=== PATIENT | female | born 1990 | race Caucasian/White ===

== ENCOUNTER 2022-01-26 14:35 | Outpatient (CLI) | payer BC, SELFPAY ==
[2022-01-26 23:10] LABS: Chlamydia DNA Amplified* NOT DETECTED (No Detected); GC DNA Amplified* NOT DETECTED (No Detected)
== END 2022-01-26 14:36 | disposition home or self-care (01) ==
PROVIDERS: PCP Nurse Practitioner Family; Visit Provider Nurse Practitioner Family
DX: Z01.419 Encounter for gynecological examination (general) (routine) without abnormal findings; R00.2 Palpitations; Z11.3 Encounter for screening for infections with a predominantly sexual mode of transmission
CPT/HCPCS: 36415; 84443; 87491; 87591; 87624; 88175

== ENCOUNTER 2023-04-19 06:53 | Outpatient (CLI) | payer BC, SELFPAY ==
--- OUTSIDE RECORDS SUMMARY | 2023-04-19 06:55 | XMS_ITS | Clinical Summary ---
Author Name Unknown Organization [facility] Address [address] [place] [address] Care Team Providers Care Mud Analysis Supervisor Name Role Phone Elsewhere, Pcp Primary Care Provider Unavailabl e Source Comments Patient records contain information from all sites at [facility]. For routine questions regarding patient records, call [phone] during business hours, M-F 8:00 AM - 5:00 PM Central Time. Record requests for emergency care only can be directed to [phone] at any time.[facility] Allergies Active Allergy Reactions Criticality Noted Date Comments Nickel Other (see comments) 10/24/2017 Penicillin Other (see comments) 07/06/2010 Medications Medication Sig Dispensed Refills Start Date End Date Status ascorbic acid-bioflavonoids 1,000-100 mg tablet extended release as needed. 0 08/26/2011 Active etonogestrel (for_NEXPLANON) 68 mg subdermal implant 1 each by subdermal route once. 0 Active levonorgestrel-ethiny l estradiol (SEASONALE) 0.15-mg-30 mcg per tablet Take 1 tablet by mouth daily. 0 Active omega 4-goh-ggw-fish oil 900 mg-360 mg- 455 mg-1,000 mg capsule Take 1,200 mg by mouth. 0 Active TURMERIC ORAL Take by mouth daily. 0 Active ondansetron ODT (ZOFRAN-ODT) 4 mg disintegrating tablet Take 1 tablet (4 mg total) by mouth every 12 (twelve) hours. 10 tablet 0 06/28/2021 Active Additional Information Patient not taking.Reported on 09/24/2021 youza-3-fud-epa-dpa-f kaci oil 1,050-1,200 mg capsule Take 1,200 mg by mouth. 0 Active turmeric root extract 500 mg capsule Take by mouth daily. 0 Active cholecalciferol, vitamin D3, 25 mcg (1,000 Unit) tablet Take 1,000 Units by mouth. 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 Bleeding Rectal (Primary Dx) Discharge Disposition: Home or Self Care 04/09/2023 Nurse Triage Department of Family Medicine in [address] [phone] Tash Vigil, RlEizabethN. Rectal Bleeding from Last 3 Months Immunizations Name Administration Dates Next Due 4vHPV (discontinued) 02/06/2014,08/28/2013,06/07 DTaP-IPV/Hib (Pentacel) 08/06/2014 HepB Pediatric/Adolescent 11/03/2005,01/10/2003, 11/02/2002 MMR 11/02/2002 Td (Adult), adsorbed 11/02/2002 Family History Medical History Relation Name Comments Dementia Maternal Grandfather Timmy Shelton n/a Depression Maternal Grandfather Timmy Shelton pil ls Cancer Maternal Grandmother Diabetes Maternal Grandmother Thyroid disease Mother Susan Deshpande pills Depression Paternal Grandfather Pablito Deshpande Diabetes Paternal Grandfather Pablito Deshpande manged by pills Heart disease Paternal Grandfather Pablito Gerardo guerin Relation Name Status Comments Maternal Grandfather Timmy Shelton Maternal Grandmother Mother Susan Deshpande Paternal Grandfather Pablito Gerardo Deshpande Social History Tobacco Use Types Packs/Day Years Used Date Smoking Tobacco: Former Cigarettes 0.5 6 S tarted: 11/12/2008 Smokeless Tobacco: Current Chew Tobacco Cessation:Counseling Given: Yes Alcohol Use Standard Drinks/Week Comments Yes 4 (1 standard drink = 0.6 oz pur e alcohol) Social Connection and Isolation Panel [NHANES] A nswer Date Recorded Frequency of Communication with Friends and Fami ly Twice a week 03/27/2019 Frequency of Social Gatherings with Friends and Family Once a week 03/27/2019 Attends Muslim Services Never 03/27 Active Member of Clubs or Organizations Yes 03/27/2019 Attends Club or Organization Meetings Never 03/27/2019 Marital Status Never 03/27/2019 AUDIT-C Answer Date Recorded Frequency of Alcohol Consumption 2-3 times a wee k 03/27/2019 Average Number of Drinks 3 or 4 019 Frequency of Binge Drinking Less than monthly Overall Financial Resource Strain (CARDIA) Answe r Date Recorded Difficulty of Paying Living Expenses Not hard at all 03/27/2019 [facility] - Occupational Stress Questionnaire Answer Date Recorded Feeling of Stress To some extent 03/27/2019 Exercise Vital Sign Answer Date Recorde d Days of Exercise per Week 6 days 2018 Minutes of Exercise per Session 140 min 03/27/2019 Hunger Vital Sign Answer Date Recorded Worried About Running Out of Food in the Last Ye ar Never true 03/27/2019 Ran Out of Food in the Last Year Never true 03/27/2019 PRAPARE - Transportation Answer Date Re corded Lack of Transportation (Medical) No 03/27/2019 Lack of Transportation (Non-Medical) No 03/27/2019 Nutrition Answer Date Recorded Nutrition: EVOO Fat Source Unknown 05/29 Nutrition: Servings of Fruits/Vegetables per Day Not on file 05/29/2020 Dental Answer Date Recorded Dental: Regular Dentist Unknown 05/30/19 21 Education Answer Date Recorded What is the highest level of school you have completed or the highest degree you have received? GED or equivalent Sex and Gender Information Value Date Recorded Sex Assigned at Not on file Gender Identity Not on file Sexual Orientation Not on file Last Filed Vital Signs Vital Sign Reading Time Taken Comments Blood Pressure 116/83 04/09/2023 1:45 PM CUSTOMER OPERATIONS SPECIALIST Pulse 88 04/09/2023 1:49 PM CUSTOMER OPERATIONS SPECIALIST Temperature 36.6 ??C (97.9 ??F) 04/09/2023 4:16 PM CS T Respiratory Rate 13 04/09/2023 1:51 PM CUSTOMER OPERATIONS SPECIALIST Oxygen Saturation 98% 04/09/2023 1:49 PM CUSTOMER OPERATIONS SPECIALIST Inhaled Oxygen Concentration - - Weight 72 kg (158 lb 11.7 oz) 04/09/2023 1:51 PM CUSTOMER OPERATIONS SPECIALIST Height 181.4 cm (5' 11.42) 03/27/2019 9:02 AM C Body Mass Index 21.88 03/27/2019 9:02 AM CUSTOMER OPERATIONS SPECIALIST Plan of Treatment Health Maintenance Due Date Last Done Comments HIV Screening 1990 Hepatitis C Screening 1990 COVID-19 Vaccine (#1) 1990 Tobacco Cessation counseling 07/04/2018 07/04/2017 Influenza Vaccine (#1) 2022 Depression Screening (Annual PHQ-2) 03/28/2023 DTaP,Tdap,and Td Vaccines (7 - Tdap) 08/06/2024 08/06/2014, 08/06/2014, 08/06/2014, Additional history exists Cervical Cancer Screening 01/26/20252021, 05/31/2019, 07/04/2017, Additional history exists Hepatitis B Vaccines Completed 11/03/2005, 06/26/2003, 01/10/2003, Additional history exists HPV Vaccines Completed 02/06/2014, 01/26, 08/28/2013, Additional history exists Pneumococcal vaccine (0-64 years) Aged Out No longer eligible based on patient's age to complete this topic Medical Devices Implanted Type Area Diplomatic Officer Device Identifier Shelf Expiration Date Model / Serial / Lot Nexplanon-04/24 Implanted:03/29 (Quantity not on file) Misc Other Arm Nexplanon-04/24 Implanted:03/29 (Quantity not on file) Other/Legacy - See Implant Description Arm Procedures Procedure Name Priority Date/Time Associated Diagnosis Comments CT ABDOMEN PELVIS WITHOUT AND WITH IV CONTRAST RAD - Semiurgent (Fast; most ED patients; some inpatients) 04/09/2023 2:58 PM CUSTOMER OPERATIONS SPECIALIST CBC WITH DIFFERENTIAL, B STAT 04/09/2023 2:18 PM CUSTOMER OPERATIONS SPECIALIST COMPREHENSIVE METABOLIC PANEL, S/P STAT 04/09/2023 2:18 PM CUSTOMER OPERATIONS SPECIALIST TEST, POCT, U (LAB) STAT 04/09/2023 2:13 PM CUSTOMER OPERATIONS SPECIALIST HEMOCCULT Routine 04/09/2023 2:13 PM CUSTOMER OPERATIONS SPECIALIST from Last 3 Months Results * CT Abdomen Pelvis without and with IV Contrast (04/09/2023 2:58 PM CUSTOMER OPERATIONS SPECIALIST) Anatomical Region Laterality Modality Abdomen, Pelvis, Abdominal R ST LOS, Abdominal ARZ LOS, Abdominal FLA LOS N/A Computed Tomography 04/09/2023 3:01 PM CUSTOMER OPERATIONS SPECIALIST Impressions 04/09/2023 4:04 PM CUSTOMER OPERATIONS SPECIALIST No acute findings. Specifically, no evidence of a source of apparent GI bleeding. Narrative 04/09/2023 4:04 PM CUSTOMER OPERATIONS SPECIALIST EXAM: CT ABDOMEN PELVIS WITHOUT AND WITH IV CONTRAST COMPARISON: 10/09/2021 FINDINGS: Lung bases: Mild bibasilar atelectasis. Liver: No focal lesion identified. Normal enhancement. Gallbladder and Biliary Tree: No evidence of cholelithiasis. No biliary dilatation. Spleen: No focal lesion is identified. No evidence of splenomegaly. Pancreas: Normal enhancement. No focal lesion or ductal dilatation. Adrenal glands: No focal lesion identified. Kidneys, ureters, and bladder: Normal enhancement. No evidence of hydronephrosis or hydroureter. No suspicious mass lesion. No renal or ureteral calculi. GI tract: No evidence of bowel obstruction. No evidence of mucosal lesion. No contrast pooling within bowel to suggest a source of the patient's apparent GI bleeding. Soft tissues: No retroperitoneal or pelvic lymphadenopathy. Small amount of free fluid within the cul-de-sac which may be physiologic in nature. Small fat- containing umbilical hernia, unchanged. Reproductive: Unremarkable. Bones: Unremarkable for age. Procedure Note Mario Lovelace M.D. - 04/09/2023 EXAM: CT ABDOMEN PELVIS WITHOUT AND WITH IV CONTRAST COMPARISON: 10/09/2021 FINDINGS: Lung bases: Mild bibasilar atelectasis. Liver: No focal lesion identified. Normal enhancement. Gallbladder and Biliary Tree: No evidence of cholelithiasis. No biliarydilatation. Spleen: No focal lesion is identified. No evidence of splenomegaly. Pancreas: Normal enhancement. No focal lesion or ductal dilatation. Adrenal glands: No focal lesion identified. Kidneys, ureters, and bladder: Normal enhancement. No evidence ofhydronephrosis or hydroureter. No suspicious mass lesion. No renal orureteral calculi. GI tract: No evidence of bowel obstruction. No evidence of mucosal lesion.No contrast pooling within bowel to suggest a source of the patient'sapparent GI bleeding. Soft tissues: No retroperitoneal or pelvic lymphadenopathy. Small amountof free fluid within the cul-de-sac which may be physiologic in nature.Small fat-containing umbilical hernia, unchanged. Reproductive: Unremarkable. Bones: Unremarkable for age. IMPRESSION: No acute findings. Specifically, no evidence of a source of apparent GIbleeding. Daniel Johnson APRN, C.N.P., M.S.N. IMG CT P ROCEDURES * CBC with Differential, Blood (04/09/2023 2:18 PM CUSTOMER OPERATIONS SPECIALIST) Pathologist [facility] Hemoglobin 12.6 11.6 - 15.0 g/dL 04/09/2023 2:26 PM CUSTOMER OPERATIONS SPECIALIST CNFL Hematocrit 37.2 35.5 - 44.9 % 04/09/2023 2:26 PM CUSTOMER OPERATIONS SPECIALIST CNFL Erythrocytes 4.24 3.92 - 5.13 x10(12)/L 04/09/2023 2:26 PM CUSTOMER OPERATIONS SPECIALIST CNFL MCV 87.7 78.2 - 97.9 fL 04/09/2023 2:26 PM CUSTOMER OPERATIONS SPECIALIST CNFL RBC Distrib Width 13.0 12.2 - 16.1 % 04/09/2023 2:26 PM CUSTOMER OPERATIONS SPECIALIST CNFL Platelet Count 344 157 - 371 x10(9)/L 04/09/2023 2:26 PM CUSTOMER OPERATIONS SPECIALIST CNFL Leukocytes 6.7 3.4 - 9.6 x10(9)/L 04/09/2023 2:26 PM CUSTOMER OPERATIONS SPECIALIST CNFL Neutrophils 3.63 1.56 - 6.45 x10(9)/L 04/09/2023 2:26 PM CUSTOMER OPERATIONS SPECIALIST CNFL Lymphocytes 2.16 0.95 - 3.07 x10(9)/L 04/09/2023 2:26 PM CUSTOMER OPERATIONS SPECIALIST CNFL Monocytes 0.78 0.26 - 0.81 x10(9)/L 04/09/2023 2:26 PM CUSTOMER OPERATIONS SPECIALIST CNFL Eosinophils 0.11 0.03 - 0.48 x10(9)/L 04/09/2023 2:26 PM CUSTOMER OPERATIONS SPECIALIST CNFL Basophils <0.04 0.01 - 0.08 x10(9)/L 04/09/2023 2:26 PM CUSTOMER OPERATIONS SPECIALIST CNFL Blood (Blood, Venous) 04/09/2023 2:18 PM CUSTOMER OPERATIONS SPECIALIST 04/09/2023 2:20 PM CUSTOMER OPERATIONS SPECIALIST Marce Cross APRNNEilzabethP., M.S.N. LAB BLOO D ADD-ON [facility] [address] [place] [address], [facility] CNFL [facility] [place] [address] * (ABNORMAL) Comprehensive Metabolic Panel (04/09/2023 2:18 PM CUSTOMER OPERATIONS SPECIALIST) Potassium, P 3.7 3.6 - 5.2 mmol/L 04/09/2023 2:38 PM CUSTOMER OPERATIONS SPECIALIST CNFL Sodium, P 137 135 - 145 mmol/L 04/09/2023 2:38 PM CUSTOMER OPERATIONS SPECIALIST CNFL Chloride, P 104 98 - 107 mmol/L 04/09/2023 2:38 PM CUSTOMER OPERATIONS SPECIALIST CNFL Bicarbonate, P 27 22 - 29 mmol/L 04/09/2023 2:38 PM CUSTOMER OPERATIONS SPECIALIST CNFL Anion Gap, P 6(L) 7 - 15 04/09/2023 2:38 PM CUSTOMER OPERATIONS SPECIALIST CNFL BUN (Blood Urea Nitrogen), P 12 6 - 21 mg/dL 04/09/2023 2:38 PM CUSTOMER OPERATIONS SPECIALIST CNFL Creatinine 0.85 0.59 - 1.04 mg/dL 04/09/2023 2:38 PM CUSTOMER OPERATIONS SPECIALIST CNFL Estimated GFR (eGFR) >90 >=60 mL/min/BS A 04/09/2023 2:38 PM CUSTOMER OPERATIONS SPECIALIST CNFL Comment: Estimated GFR calculated using the 2020 CKD_EPI creatinine equation. Calcium, Total, P 9.3 8.6 - 10.0 mg/dL 04/09/2023 2:38 PM CUSTOMER OPERATIONS SPECIALIST CNFL Glucose, P 104 70 - 140 mg/dL 04/09/2023 2:38 PM CUSTOMER OPERATIONS SPECIALIST CNFL Protein, Total, P 6.9 6.3 - 7.9 g/dL 04/09/2023 2:38 PM CUSTOMER OPERATIONS SPECIALIST CNFL Albumin, P 4.3 3.5 - 5.0 g/dL 04/09/2023 2:38 PM CUSTOMER OPERATIONS SPECIALIST CNFL Aspartate Aminotransferase (AST), P 16 8 - 43 U/L 04/09/2023 2:38 PM CUSTOMER OPERATIONS SPECIALIST CNFL Alkaline Phosphatase, P 63 35 - 104 U/L 04/09/2023 2:38 PM CUSTOMER OPERATIONS SPECIALIST CNFL Alanine Aminotransferase (ALT), P 18 7 - 45 U/L 04/09/2023 2:38 PM CUSTOMER OPERATIONS SPECIALIST CNFL Bilirubin, Total, P 0.5 0.0 - 1.2 mg/dL 04/09/2023 2:38 PM CUSTOMER OPERATIONS SPECIALIST CNFL Blood (Blood, Venous) 04/09/2023 2:18 PM CUSTOMER OPERATIONS SPECIALIST 04/09/2023 2:20 PM CUSTOMER OPERATIONS SPECIALIST Adrianne Cross APRN.N.Supriya., M.S.N. LAB BLOO D ADD-ON Performing Organization Address [facility]/[place] [address], [place] [address] * (ABNORMAL) Hemoccult, Feces (04/09/2023 2:13 PM CUSTOMER OPERATIONS SPECIALIST) Hemoccult Positive(A) Negative 04/09/2023 2:28 PM CUSTOMER OPERATIONS SPECIALIST CNFL Stool (Stool) 04/09/2023 2:1 3 PM CUSTOMER OPERATIONS SPECIALIST 04/09/2023 2:24 PM CUSTOMER OPERATIONS SPECIALIST Adrianne Cross APRN.N.P., M.S.N. LAB BODY FLUIDS AND STOOLS ORDERABLES Performing Organization Address [facility] [place] [address], [address] [place] [address] * Test, POCT, Urine (Lab) (04/09/2023 2:13 PM CUSTOMER OPERATIONS SPECIALIST) Test, POCT, U Negative 04/09/2023 2:32 PM CUSTOMER OPERATIONS SPECIALIST CNFL Urine (Urine, Midstream) 04/09/2023 2:13 PM CUSTOMER OPERATIONS SPECIALIST 04/09/2023 2:24 PM CUSTOMER OPERATIONS SPECIALIST Daniel Johnson APRN, C.N.P., M.S.N. LAB POCT ORDERABLES - DEVICE [facility] [address] [place] [id number], [facility] in [address] [address] from Last 3 Months Care Teams Mud Analysis Supervisor Relationship Specialty Start Date End Date Elsewhere, Pcp PCP - General Family Medicine 06/28/21
--- OUTSIDE RECORDS SUMMARY | 2023-04-19 06:56 | XMS_ITS | Encounter Summary ---
Author Name Unknown Organization [facility] Address [address] [place] [address] Care Team Providers Care State Patrol Officer Name Role Phone Elsewhere, Pcp Primary Care Provider Unavailabl e Reason for Referral * Outpatient (Routine) - Closed Specialty Diagnoses / Procedures Referred By Alex garcía Referred To Contact Rheumatology Diagnoses Metabolizer CYP2D6 Ultra Rapid Anabela Castaneda, C.N.P. [address] [place] [address] [facility] Referral ID Status Reason Start Date Expiration Date Visits Re quested Visits Authorized [id number] Closed 08/15/2018 08/15/2019 1 1 Encounter Details Date Type Department Care Team (Late st Contact Info) Description 08/15/2018 [facility] [address] [place] [phone] Anabela Castaneda, C.N.P. [address] [place] [address] Metabolizer CYP2D6 Ultra Rapid (Primary Dx) Social History Tobacco Use Types Packs/Day Years Used Date Smoking Tobacco: Every Day Cigarettes 0.5 Smokeless Tobacco: Never Alcohol Use Standard Drinks/Week Comments Yes 0 (1 standard drink = 0.6 oz pur e alcohol) Sex and Gender Information Value Date Recorded Sex Assigned at Not on file Gender Identity Not on file Sexual Orientation Not on file documented as of this encounter Plan of Treatment Scheduled Referrals Name Type Priority Associated Diagnoses Order Schedule Rheumatology Referral Outpatient Referral Routine Metabolizer CYP2D6 Ultra Rapid Expected: 08/15/2018 (Approximate), Expires: 08/15/2021 documented as of this encounter Visit Diagnoses Diagnosis Metabolizer CYP2D6 Ultra Rapid- Primary documented in this encounter Additional Health Concerns Infection Onset Date Last Indicated Resolved Time COVID19 Pending 07/24/2020 07/24/2020 07/24/2020 8 :25 PM CDT documented as of this encounter Care Teams State Patrol Officer Relationship Specialty Start Date End Date Elsewhere, Pcp PCP - General Family Medicine 06/28/21 documented as of this encounter
--- OUTSIDE RECORDS SUMMARY | 2023-04-19 06:56 | XMS_ITS | Referral Summary ---
Author Name Unknown Organization [facility] Address [address] [place] [address] Care Team Providers Care Alteration Tailor Apprentice Name Role Phone Elsewhere, Pcp Primary Care Provider Unavailabl e Source Comments Patient records contain information from all sites at [facility]. For routine questions regarding patient records, call [phone] during business hours, M-F 8:00 AM - 5:00 PM Central Time. Record requests for emergency care only can be directed to [phone] at any time.[facility] Encounters Date Type Department Care Team Description 04/09/2023 1:45 PM CUSTODIAL SERVICES MANAGER - 04/09/2023 4:30 PM CUSTODIAL SERVICES MANAGER Emergency [facility] [address] [place] [phone] Daniel Johnson N, BASSAM, C.N.P., M.S.N. Bleeding Rectal (Primary Dx) Discharge Disposition: Home or Self Care 04/09/2023 Nurse Triage Department of Family Medicine in [address] [phone] Tash Vigil, R.N. Rectal Bleeding from Last 3 Months Allergies Active Allergy Reactions Criticality Noted Date [...] tablet by mouth daily. 0 Active omega 0-bwk-agm-fish oil 900 mg-360 mg- 455 mg-1,000 mg capsule Take 1,200 mg by mouth. 0 Active TURMERIC ORAL Take by mouth daily. 0 Active ondansetron ODT (ZOFRAN-ODT) 4 mg disintegrating tablet Take 1 tablet (4 mg total) by mouth every 12 (twelve) hours. 10 tablet 0 06/28/2021 Active Additional Information Patient not taking.Reported on 09/24/2021 fqvze-3-odk-epa-dpa-f kaci oil 1,050-1,200 mg capsule Take 1,200 [...] to surgeries born hip dysplasia unknown date Immunizations Name Administration Dates Next Due 4vHPV (discontinued) 02/06/2014,08/28/2013,06/07 DTaP-IPV/Hib (Pentacel) 08/06/2014 HepB Pediatric/Adolescent 11/03/2005,01/10/2003, 11/02/2002 MMR 11/02/2002 Td (Adult), adsorbed 11/02/2002 Social History Tobacco Use Types Packs/Day Years [...] and Family Once a week 03/27/2019 Attends Restorationism Services Never 03/27 Active Member of Clubs [...] Living Expenses Not hard at all 03/27/2019 [facility] Occupat ional Health - Occupational Stress [...] Comments Blood Pressure 116/83 04/09/2023 1:45 PM CUSTODIAL SERVICES MANAGER Pulse 88 04/09/2023 1:49 PM CUSTODIAL SERVICES MANAGER Temperature 36.6 ??C (97.9 ??F) 04/09/2023 4:16 PM CS T Respiratory Rate 13 04/09/2023 1:51 PM CUSTODIAL SERVICES MANAGER Oxygen Saturation 98% 04/09/2023 1:49 PM CUSTODIAL SERVICES MANAGER Inhaled Oxygen Concentration - - Weight 72 kg (158 lb 11.7 oz) 04/09/2023 1:51 PM CUSTODIAL SERVICES MANAGER Height 181.4 cm (5' 11.42) 03/27/2019 9:[address] Body Mass Index 21.88 03/27/2019 9:02 AM CUSTODIAL SERVICES MANAGER Plan of Treatment Not on file Medical Devices Implanted Type Area Franchise Broker Device Identifier Shelf Expiration Date Model / Serial / Lot Nexplanon-04/24 Implanted:03/29 (Quantity not on file) Misc Other Arm Nexplanon-04/24 Implanted:03/29 (Quantity not on file) Other/Legacy - See Implant Description Arm Procedures Procedure Name Priority Date/Time Associated Diagnosis Comments CT ABDOMEN PELVIS WITHOUT AND WITH IV CONTRAST RAD - Semiurgent (Fast; most ED patients; some inpatients) 04/09/2023 2:58 PM CUSTODIAL SERVICES MANAGER CBC WITH DIFFERENTIAL, B STAT 04/09/2023 2:18 PM CUSTODIAL SERVICES MANAGER COMPREHENSIVE METABOLIC PANEL, S/P STAT 04/09/2023 2:18 PM CUSTODIAL SERVICES MANAGER TEST, POCT, U (LAB) STAT 04/09/2023 2:13 PM CUSTODIAL SERVICES MANAGER HEMOCCULT Routine 04/09/2023 2:13 PM CUSTODIAL SERVICES MANAGER from Last 3 Months Results * CT Abdomen Pelvis without and with IV Contrast (04/09/2023 2:58 PM CUSTODIAL SERVICES MANAGER) Anatomical Region Laterality Modality Abdomen, Pelvis, Abdominal R ST LOS, Abdominal ARZ LOS, Abdominal FLA LOS N/A Computed Tomography 04/09/2023 3:01 PM CUSTODIAL SERVICES MANAGER Impressions 04/09/2023 4:04 PM CUSTODIAL SERVICES MANAGER No acute findings. Specifically, no evidence of a source of apparent GI bleeding. Narrative 04/09/2023 4:04 PM CUSTODIAL SERVICES MANAGER EXAM: CT ABDOMEN PELVIS WITHOUT AND WITH [...] CBC with Differential, Blood (04/09/2023 2:18 PM CUSTODIAL SERVICES MANAGER) Hemoglobin 12.6 11.6 - 15.0 g/dL 04/09/2023 2:26 PM CUSTODIAL SERVICES MANAGER CNFL Hematocrit 37.2 35.5 - 44.9 % 04/09/2023 2:26 PM CUSTODIAL SERVICES MANAGER CNFL Erythrocytes 4.24 3.92 - 5.13 x10(12)/L 04/09/2023 2:26 PM CUSTODIAL SERVICES MANAGER CNFL MCV 87.7 78.2 - 97.9 fL 04/09/2023 2:26 PM CUSTODIAL SERVICES MANAGER CNFL RBC Distrib Width 13.0 12.2 - 16.1 % 04/09/2023 2:26 PM CUSTODIAL SERVICES MANAGER CNFL Platelet Count 344 157 - 371 x10(9)/L 04/09/2023 2:26 PM CUSTODIAL SERVICES MANAGER CNFL Leukocytes 6.7 3.4 - 9.6 x10(9)/L 04/09/2023 2:26 PM CUSTODIAL SERVICES MANAGER CNFL Neutrophils 3.63 1.56 - 6.45 x10(9)/L 04/09/2023 2:26 PM CUSTODIAL SERVICES MANAGER CNFL Lymphocytes 2.16 0.95 - 3.07 x10(9)/L 04/09/2023 2:26 PM CUSTODIAL SERVICES MANAGER CNFL Monocytes 0.78 0.26 - 0.81 x10(9)/L 04/09/2023 2:26 PM CUSTODIAL SERVICES MANAGER CNFL Eosinophils 0.11 0.03 - 0.48 x10(9)/L 04/09/2023 2:26 PM CUSTODIAL SERVICES MANAGER CNFL Basophils <0.04 0.01 - 0.08 x10(9)/L 04/09/2023 2:26 PM CUSTODIAL SERVICES MANAGER CNFL Blood (Blood, Venous) 04/09/2023 2:18 PM CUSTODIAL SERVICES MANAGER 04/09/2023 2:20 PM CUSTODIAL SERVICES MANAGER Daniel Johnson APRN C.N.P., M.S.N. LAB BLOO D ADD-ON Performing Organization Address [facility]/State/ZIP Co de Phone Number [facility] [address] [place] [address], [facility] [place] [address] * (ABNORMAL) Comprehensive Metabolic Panel (04/09/2023 2:18 PM CUSTODIAL SERVICES MANAGER) Potassium, P 3.7 3.6 - 5.2 mmol/L 04/09/2023 2:38 PM CUSTODIAL SERVICES MANAGER CNFL Sodium, P 137 135 - 145 mmol/L 04/09/2023 2:38 PM CUSTODIAL SERVICES MANAGER CNFL Chloride, P 104 98 - 107 mmol/L 04/09/2023 2:38 PM CUSTODIAL SERVICES MANAGER CNFL Bicarbonate, P 27 22 - 29 mmol/L 04/09/2023 2:38 PM CUSTODIAL SERVICES MANAGER CNFL Anion Gap, P 6(L) 7 - 15 04/09/2023 2:38 PM CUSTODIAL SERVICES MANAGER CN[facility] BUN (Blood Urea Nitrogen), P 12 6 - 21 mg/dL 04/09/2023 2:38 PM CUSTODIAL SERVICES MANAGER CNFL Creatinine 0.85 0.59 - 1.04 mg/dL 04/09/2023 2:38 PM CUSTODIAL SERVICES MANAGER CNFL Estimated GFR (eGFR) >90 >=60 mL/min/BS A 04/09/2023 2:38 PM CUSTODIAL SERVICES MANAGER CNFL Comment: Estimated GFR calculated using the 2020 CKD_EPI creatinine equation. Calcium, Total, P 9.3 8.6 - 10.0 mg/dL 04/09/2023 2:38 PM CUSTODIAL SERVICES MANAGER CNFL Glucose, P 104 70 - 140 mg/dL 04/09/2023 2:38 PM CUSTODIAL SERVICES MANAGER CNFL Protein, Total, P 6.9 6.3 - 7.9 g/dL 04/09/2023 2:38 PM CUSTODIAL SERVICES MANAGER CNFL Albumin, P 4.3 3.5 - 5.0 g/dL 04/09/2023 2:38 PM CUSTODIAL SERVICES MANAGER CNFL Aspartate Aminotransferase (AST), P 16 8 - 43 U/L 04/09/2023 2:38 PM CUSTODIAL SERVICES MANAGER CNFL Alkaline Phosphatase, P 63 35 - 104 U/L 04/09/2023 2:38 PM CUSTODIAL SERVICES MANAGER CNFL Alanine Aminotransferase (ALT), P 18 7 - 45 U/L 04/09/2023 2:38 PM CUSTODIAL SERVICES MANAGER CNFL Bilirubin, Total, P 0.5 0.0 - 1.2 mg/dL 04/09/2023 2:38 PM CUSTODIAL SERVICES MANAGER CNFL Blood (Blood, Venous) 04/09/2023 2:18 PM CUSTODIAL SERVICES MANAGER 04/09/2023 2:20 PM CUSTODIAL SERVICES MANAGER Daniel Johnson APRN, C.N.P., M.S.N. LAB BLOO D ADD-ON [facility] [address] [place] [id number], [facility] CNFL [facility] in [address] [address] * (ABNORMAL) Hemoccult, Feces (04/09/2023 2:13 PM CUSTODIAL SERVICES MANAGER) Hemoccult Positive(A) Negative 04/09/2023 2:28 PM CUSTODIAL SERVICES MANAGER CNFL Stool (Stool) 04/09/2023 2:1 3 PM CUSTODIAL SERVICES MANAGER 04/09/2023 2:24 PM CUSTODIAL SERVICES MANAGER Daniel Johnson APRN, C.N.P., M.S.N. LAB BODY FLUIDS AND STOOLS ORDERABLES [facility] [address] [place] [address], [place] [facility] in [address] [address] * Test, POCT, Urine (Lab) (04/09/2023 2:13 PM CUSTODIAL SERVICES MANAGER) Test, POCT, U Negative 04/09/2023 2:32 PM CUSTODIAL SERVICES MANAGER CNFL Urine (Urine, Midstream) 04/09/2023 2:13 PM CUSTODIAL SERVICES MANAGER 04/09/2023 2:24 PM CUSTODIAL SERVICES MANAGER Daniel Johnson APRN, C.N.P., M.S.N. LAB POCT ORDERABLES - DEVICE Performing Organization Address City/[facility] Co de Phone Number [address] [address], [place] [address] [address] from Last 3 Months Care Teams Alteration Tailor Apprentice Relationship Specialty Start Date End Date Elsewhere, Pcp PCP - General Family Medicine 06/28/21
--- OUTSIDE RECORDS SUMMARY | 2023-04-19 06:56 | XMS_ITS | Encounter Summary ---
Author Name Unknown Organization [facility] Address [address] [place] [id number] Care Team Providers Care Leaded Glass Installer Name Role Phone Elsewhere, Pcp Primary Care Provider Unavailabl e Reason for Visit * Reason Onset Date Comments Rectal Bleeding 04/09/2023 Encounter Details Date Type Department Care Team ([facility] st Contact Info) Description 04/09/2023 Nurse Triage Department of Family Medicine in [place], [place] [address] [place] [phone] Tash Vigil, RElizabethN. [address] [place] [phone] Rectal Bleeding Social History Tobacco Use Types Packs/Day Years Used Date Smoking Tobacco: Former Cigarettes 0.5 6 S tarted: 11/12/2008 Smokeless Tobacco: Current Chew Alcohol Use Standard Drinks/Week Comments Yes 4 (1 standard drink = 0.6 oz pur e alcohol) Social Connection and Isolation Panel [NHANES] A nswer Date Recorded Frequency of Communication with Friends and Fami ly Twice a week 03/27/2019 Frequency of Social Gatherings with Friends and Family Once a week 03/27/2019 Attends Spiritism Services Never 03/27 Active Member of Clubs [...] Living Expenses Not hard at all 03/27/2019 [facility] of Occupat ional Health - Occupational Stress [...] on file documented as of this encounter Miscellaneous Notes * Telephone Encounter - Tash Vigil R.N. - 04/09/2023 1:19 PM CST Chief Complaint / Reason for Call Patient is a 33 y.o. female calling regarding Rectal Bleeding. Assessment Concern: Patient reports rectal bleeding since yesterday afternoon with three episodes that have turned the toilet water red. Rectal pain is present with bowel movements. Calling to request: Advice The recommended disposition is Go to ED Now. Reason for Disposition [1] MODERATE rectal bleeding (small blood clots, passing blood without stool, or toilet water turnsred) AND [2] more than once a day Protocols used: Rectal Darujibl-ABXHI-MQ Care Advice Patient/Caregiver understands and will follow care advice?: Yes, able to teach back GO TO ED NOW: * You need to be seen in the Emergency Department. O STRINGER documented in this encounter Plan of Treatment Not on file documented as of this encounter Visit Diagnoses Not on filedocumented in this encounter Care Teams Leaded Glass Installer Relationship Specialty Start Date End Date Elsewhere, Pcp PCP - General Family Medicine 06/28/21 documented as of this encounter
--- OUTSIDE RECORDS SUMMARY | 2023-04-19 06:56 | XMS_ITS | Encounter Summary ---
Author Name Unknown Organization [facility] Address [address] [place] [address] Care Team Providers Care Commercial Green Retrofit Architect Name Role Phone Elsewhere, Pcp Primary Care Provider Unavailabl e Reason for Visit * Reason Comments Rectal Bleeding Presents with concer ns of bleeding from rectum over the past 24 hours Encounter Details Date Type Department Care Team ([facility] st Contact Info) Description 04/09/2023 1:45 PM CHILD WELFARE ASSISTANT - 04/09/2023 4:30 PM CHILD WELFARE ASSISTANT Emergency [facility] [address] [place] [id number] Daniel Johnson, BASSAM, C.N.P., M.S.N. [address] [place] [phone] Bleeding Rectal (Primary Dx) Discharge Disposition: Home or Self Care Social History Tobacco Use Types Packs/Day Years [...] and Family Once a week 03/27/2019 Attends [employer] Never 03/27 Active Member of Clubs [...] Living Expenses Not hard at all 03/27/2019 [facility] [place] [facility] Occupat ional [facility] - Occupational Stress [...] on file documented as of this encounter Last Filed Vital Signs Vital Sign Reading Time Taken Comments Blood Pressure 116/83 04/09/2023 1:45 PM CHILD WELFARE ASSISTANT Pulse 88 04/09/2023 1:49 PM CHILD WELFARE ASSISTANT Temperature 36.6 ??C (97.9 ??F) 04/09/2023 4:16 PM CS T Respiratory Rate 13 04/09/2023 1:51 PM CHILD WELFARE ASSISTANT Oxygen Saturation 98% 04/09/2023 1:49 PM CHILD WELFARE ASSISTANT Inhaled Oxygen Concentration - - Weight 72 kg (158 lb 11.7 oz) 04/09/2023 1:51 PM CHILD WELFARE ASSISTANT Height - - Body Mass Index 21.88 03/27/2019 9:02 AM CHILD WELFARE ASSISTANT documented in this encounter Discharge Instructions * Discharge Instructions* Daniel Johnson N, [employer], C.N.P., M.S.N. - 04/09/2023 4:12 PM CHILD WELFARE ASSISTANT Consider close follow-up your primary care next week for outpatient colonoscopy as necessary. If you develop persistent rectal bleeding with lightheadedness or dizziness, abdominal pain, nauseavomiting, fever, or worsening symptoms, you can return to the emergency department. D WELFARE ASSISTANT * Attachments The following attachments cannot be sent through Care Everywhere. * Lower Gastrointestinal Bleeding (Venezuelan) documented in this encounter Medications at Time of Discharge Medication Sig Dispensed Refills Start Date End Date ascorbic acid-bioflavonoids 1,000-100 mg tablet extended release as needed. 0 08/26/2011 cholecalciferol, vitamin D3, 25 mcg (1,000 Unit) tablet Take 1,000 Units by mouth. 0 etonogestrel (for_NEXPLANON) 68 mg subdermal implant 1 each by subdermal route once. 0 levonorgestrel-ethinyl estradiol (SEASONALE) 0.15-mg-30 mcg per tablet Take 1 tablet by mouth daily. 0 levonorgestrel-ethinyl estradiol (SEASONALE) 0.15-mg-30 mcg per tablet Daily 0 omega 3-qol-gao-fish oil 900 mg-360 mg- 455 mg-1,000 mg capsule Take 1,200 mg by mouth. 0 szzxw-7-rbg-jro-uer-qnqh oil 1,050-1,200 mg capsule Take 1,200 mg by mouth. 0 ondansetron ODT (ZOFRAN-ODT) 4 mg disintegrating tablet Take 1 tablet (4 mg total) by mouth every 12 (twelve) hours. 10 tablet 0 06/28/2021 TURMERIC ORAL Take by mouth daily. 0 turmeric root extract 500 mg capsule Take by mouth daily. 0 documented as of this encounter ED Notes * Daniel Johnson APRN, C.N.Supriya., M.S.N. - 04/09/2023 1:57 PM CST SUBJECTIVE CHIEF COMPLAINT/REASON FOR VISIT Rectal Bleeding (Presents with concerns of bleeding from rectum over the past 24 hours) HISTORY OF PRESENT ILLNESS History provided by: Patient REVIEW OF SYSTEMS Constitutional: Negative for chills and fever. HENT: Negative for facial swelling. Eyes: Negative for diana-orbital edema. Respiratory: Negative for cough and shortness of breath. Cardiovascular: Negative for chest pain and leg swelling. Gastrointestinal: Positive for blood in stool and rectal pain. Negative for abdominal distention, abdominal pain, constipation, diarrhea, nausea and vomiting. Genitourinary: Negative for dysuria, flank pain, frequency and urgency. Musculoskeletal: Negative. Skin: Negative. Neurological: Negative. Psychiatric/Behavioral: Negative. All other systems reviewed and are negative. OBJECTIVE Initial Vitals Temperature 04/09/23 1351 36.8 ??C Pulse Rate 04/09/23 1345 94 Heart Rate -- Resp Rate 04/09/23 1351 13 Blood Pressure 04/09/23 1345 116/83 SpO2 04/09/23 1345 99 % Pain Score 04/09/23 1429 0 - No pain PHYSICAL EXAMINATION Constitutional: Nursing note and vitals reviewed. No distress. HENT: Head: Normocephalic. Nose: Nose normal. Eyes: Conjunctivae are normal. Neck: No tracheal deviation present. Pulmonary/Chest: Effort normal. Abdominal: Soft. Bowel sounds are normal. exhibits no distension. There is abdominal tenderness in the left lower quadrant. Genitourinary: Genitourinary Comments: JACKY Sawant as nurse emergency room. No external hemorrhoid noted. No internal hemorrhoids brown palpated. Streaky bright red blood noted in stool. Musculoskeletal: General: No deformity. Neurological: Alert. Skin: Skin is normal color. ASSESSMENT/PLAN Lisa Deshpande is a 33 y.o. female who presents to ED concerning for rectal bleeding. Patient reports over the past 24 hours she developed 3 episodes of bright red blood when she was having a bowelmovement. She did endorse having last episodes 1:00 a.m. this morning when she was straining hard. She denies any associated episodes of lightheadedness or dizziness. She denies any nausea vomiting. Denies any fevers or chills. Denies any back pain or abdominal pain, she denies any vaginal bleedingor urinary symptoms. Differential diagnosis includes diverticulitis, ischemic bowel, gastric ulcer, esophageal varices, and others considered. Patient is alert and well-appearing. No vomiting blood noted. At this time low suspicion for ischemic bowel or esophageal varices. Diverticulosis is a consideration as well. Lab work and CT reassuring with no acute process. Patient denies any persistent symptoms of the rectal tenesmus. At this time, suspicion for inflammatory bowel disease would be low. Plan: With reassuring CT imaging, discharge home with recommendation she reach out to primary care to consider outpatient colonoscopy and further evaluation. Patient states understanding. ED Course as of 04/09/23 1612 Sat Apr 09, 2023 1427 Hemoglobin: 12.6 1429 Hemoccult(!): Positive Final Diagnoses: as of 04/09/23 1612 Bleeding Rectal Daniel Johnson APRN C.N.P., M.S.N. 04/09/23 1612 D WELFARE ASSISTANT documented in this encounter Plan of Treatment Not on file documented as of this encounter Procedures Procedure Name Priority Date/Time Associated Diagnosis Comments CT ABDOMEN PELVIS WITHOUT AND WITH IV CONTRAST RAD - Semiurgent (Fast; most ED patients; some inpatients) 04/09/2023 2:58 PM CHILD WELFARE ASSISTANT CBC WITH DIFFERENTIAL, B STAT 04/09/2023 2:18 PM CHILD WELFARE ASSISTANT COMPREHENSIVE METABOLIC PANEL, S/P STAT 04/09/2023 2:18 PM CHILD WELFARE ASSISTANT HEMOCCULT Routine 04/09/2023 2:13 PM CHILD WELFARE ASSISTANT TEST, POCT, U (LAB) STAT 04/09/2023 2:13 PM CHILD WELFARE ASSISTANT documented in this encounter Results * CT Abdomen Pelvis without and with IV Contrast (04/09/2023 2:58 PM CHILD WELFARE ASSISTANT) Anatomical Region Laterality Modality Abdomen, Pelvis, Abdominal R ST LOS, Abdominal ARZ LOS, Abdominal FLA LOS N/A Computed Tomography 04/09/2023 3:01 PM CHILD WELFARE ASSISTANT Impressions 04/09/2023 4:04 PM CHILD WELFARE ASSISTANT No acute findings. Specifically, no evidence of a source of apparent GI bleeding. Narrative 04/09/2023 4:04 PM CHILD WELFARE ASSISTANT EXAM: CT ABDOMEN PELVIS WITHOUT AND WITH [...] CBC with Differential, Blood (04/09/2023 2:18 PM CHILD WELFARE ASSISTANT) Hemoglobin 12.6 11.6 - 15.0 g/dL 04/09/2023 2:26 PM CHILD WELFARE ASSISTANT CNFL Hematocrit 37.2 35.5 - 44.9 % 04/09/2023 2:26 PM CHILD WELFARE ASSISTANT CNFL Erythrocytes 4.24 3.92 - 5.13 x10(12)/L 04/09/2023 2:26 PM CHILD WELFARE ASSISTANT CNFL MCV 87.7 78.2 - 97.9 fL 04/09/2023 2:26 PM CHILD WELFARE ASSISTANT CNFL RBC Distrib Width 13.0 12.2 - 16.1 % 04/09/2023 2:26 PM CHILD WELFARE ASSISTANT CNFL Platelet Count 344 157 - 371 x10(9)/L 04/09/2023 2:26 PM CHILD WELFARE ASSISTANT CNFL Leukocytes 6.7 3.4 - 9.6 x10(9)/L 04/09/2023 2:26 PM CHILD WELFARE ASSISTANT CNFL Neutrophils 3.63 1.56 - 6.45 x10(9)/L 04/09/2023 2:26 PM CHILD WELFARE ASSISTANT CNFL Lymphocytes 2.16 0.95 - 3.07 x10(9)/L 04/09/2023 2:26 PM CHILD WELFARE ASSISTANT CNFL Monocytes 0.78 0.26 - 0.81 x10(9)/L 04/09/2023 2:26 PM CHILD WELFARE ASSISTANT CNFL Eosinophils 0.11 0.03 - 0.48 x10(9)/L 04/09/2023 2:26 PM CHILD WELFARE ASSISTANT CNFL Basophils <0.04 0.01 - 0.08 x10(9)/L 04/09/2023 2:26 PM CHILD WELFARE ASSISTANT CNFL Blood (Blood, Venous) 04/09/2023 2:18 PM CHILD WELFARE ASSISTANT 04/09/2023 2:20 PM CHILD WELFARE ASSISTANT Daniel Johnson APRN C.N.P., M.S.N. LAB BLOO D ADD-ON [facility] [address] [place] [id number], [facility] CNFL [facility] [address] * (ABNORMAL) Comprehensive Metabolic Panel (04/09/2023 2:18 PM CHILD WELFARE ASSISTANT) [facility] Potassium, P 3.7 3.6 - 5.2 mmol/L 04/09/2023 2:38 PM CHILD WELFARE ASSISTANT CNFL Sodium, P 137 135 - 145 mmol/L 04/09/2023 2:38 PM CHILD WELFARE ASSISTANT CNFL Chloride, P 104 98 - 107 mmol/L 04/09/2023 2:38 PM CHILD WELFARE ASSISTANT CNFL Bicarbonate, P 27 22 - 29 mmol/L 04/09/2023 2:38 PM CHILD WELFARE ASSISTANT CNFL Anion Gap, P 6(L) 7 - 15 04/09/2023 2:38 PM CHILD WELFARE ASSISTANT CNFL BUN (Blood Urea Nitrogen), P 12 6 - 21 mg/dL 04/09/2023 2:38 PM CHILD WELFARE ASSISTANT CNFL Creatinine 0.85 0.59 - 1.04 mg/dL 04/09/2023 2:38 PM CHILD WELFARE ASSISTANT CNFL Estimated GFR (eGFR) >90 >=60 mL/min/BS A 04/09/2023 2:38 PM CHILD WELFARE ASSISTANT CNFL Comment: Estimated GFR calculated using the 2020 CKD_EPI creatinine equation. Calcium, Total, P 9.3 8.6 - 10.0 mg/dL 04/09/2023 2:38 PM CHILD WELFARE ASSISTANT CNFL Glucose, P 104 70 - 140 mg/dL 04/09/2023 2:38 PM CHILD WELFARE ASSISTANT CNFL Protein, Total, P 6.9 6.3 - 7.9 g/dL 04/09/2023 2:38 PM CHILD WELFARE ASSISTANT CNFL Albumin, P 4.3 3.5 - 5.0 g/dL 04/09/2023 2:38 PM CHILD WELFARE ASSISTANT CNFL Aspartate Aminotransferase (AST), P 16 8 - 43 U/L 04/09/2023 2:38 PM CHILD WELFARE ASSISTANT CNFL Alkaline Phosphatase, P 63 35 - 104 U/L 04/09/2023 2:38 PM CHILD WELFARE ASSISTANT CNFL Alanine Aminotransferase (ALT), P 18 7 - 45 U/L 04/09/2023 2:38 PM CHILD WELFARE ASSISTANT CNFL Bilirubin, Total, P 0.5 0.0 - 1.2 mg/dL 04/09/2023 2:38 PM CHILD WELFARE ASSISTANT CNFL Blood (Blood, Venous) 04/09/2023 2:18 PM CHILD WELFARE ASSISTANT 04/09/2023 2:20 PM CHILD WELFARE ASSISTANT Daniel Johnson APRN, C.N.P., M.S.N. LAB BLOO D ADD-ON Performing Organization Address [facility] [place] [address] * Test, POCT, Urine (Lab) (04/09/2023 2:13 PM CHILD WELFARE ASSISTANT) Test, POCT, U Negative 04/09/2023 2:32 PM CHILD WELFARE ASSISTANT CNFL Urine (Urine, Midstream) 04/09/2023 2:13 PM CHILD WELFARE ASSISTANT 04/09/2023 2:24 PM CHILD WELFARE ASSISTANT Daniel Johnson APRN, C.N.P., M.S.N. LAB POCT ORDERABLES - DEVICE Performing Organization Address [facility] [place] [address], [facility] [place] [address] * (ABNORMAL) Hemoccult, Feces (04/09/2023 2:13 PM CHILD WELFARE ASSISTANT) Hemoccult Positive(A) Negative 04/09/2023 2:28 PM CHILD WELFARE ASSISTANT CNFL Stool (Stool) 04/09/2023 2:1 3 PM CHILD WELFARE ASSISTANT 04/09/2023 2:24 PM CHILD WELFARE ASSISTANT Daniel Johnson APRN, C.N.P., M.S.N. LAB BODY FLUIDS AND STOOLS ORDERABLES Performing Organization Address [facility] [place] [address], [place] [address] documented in this encounter Visit Diagnoses Diagnosis Bleeding Rectal- Primary documented in this encounter Administered Medications Inactive Administered Medications - up to 3 most recent administrations Medication Order MAR Action Action Date Dose Rate Site iohexoL 350 mg iodine/mL solution 115 mL (OMNIPAQUE) 115 mL, intravenous, Once in imaging, contrast, Starting on 04/09/23 at 1438, For 1 dose Given 04/09/2023 2:56 PM CHILD WELFARE ASSISTANT 115 mL pantoprazole injection 40 mg (PROTONIX) 40 mg, intravenous, Once, On 04/09/23 at 1410, For 1 dose, Administer IV push over 2 minutes. Add 10 mL NS to 40 mg vial for a final concentration of 4 mg/mL. Given 04/09/2023 2:14 PM CHILD WELFARE ASSISTANT 40 mg sodium chloride 0.9 % flush 80 mL 80 mL, intravenous, Once in imaging, line care, Starting on 04/09/23 at 1438, For 1 dose Given 04/09/2023 2:57 PM CHILD WELFARE ASSISTANT 80 mL sodium chloride 0.9 % injection 10 mL 10 mL, intravenous, As needed, line care, Starting on 04/09/23 at 1438 Given 04/09/2023 2:56 PM CHILD WELFARE ASSISTANT 10 mL documented in this encounter Active and Recently Administered Medications Times are shown in CHILD WELFARE ASSISTANT. Scheduled Medication Order 04/07/2023 04/08/2023 04/09/2023 pantoprazole injection 40 mg (PROTONIX) (COMPLETED) 40 mg, intravenous, Once, On 04/09/23 at 1410, For 1 dose, Administer IV push over 2 minutes. Add 10 mL NS to 40 mg vial for a final concentration of 4 mg/mL. 1414 (Given - Provid er: Savana Johnson R.N.) PRN Medication Order 04/07/2023 04/08/2023 04/09/2023 iohexoL 350 mg iodine/mL solution 115 mL (OMNIPAQUE) (COMPLETED) 115 mL, intravenous, Once in imaging, contrast, Starting on 04/09/23 at 1438, For 1 dose 1456 (Given - Provid er: Stewart Ochoa, R.T.(R)(CT), R.T.(R)) sodium chloride 0.9 % flush 80 mL (COMPLETED) 80 mL, intravenous, Once in imaging, line care, Starting on 04/09/23 at 1438, For 1 dose 1457 (Given - Provid er: Alyssia Rosen(R)(CT), R.T.(R)) sodium chloride 0.9 % injection 10 mL 10 mL, intravenous, As needed, line care, Starting on 04/09/23 at 1438 1456 (Given - Provid er: Alyssia Rosen(Yamilet)(CT), R.T.(R)) documented in this encounter Care Teams Commercial Green Retrofit Architect Relationship Specialty Start Date End Date Elsewhere, Pcp PCP - General Family Medicine 06/28/21 documented as of this encounter
--- OUTSIDE RECORDS SUMMARY | 2023-04-19 06:56 | XMS_ITS ---
Author Name Unknown Organization [facility] Address [address] [place] [address] Care Team Providers Care Power Generating Plant Operator Name Role Phone Unavailable Unavailable Unavailable Surgery Details Not on file Complications Check Surgery Details section. Procedure Estimated Blood Loss Check Surgery Details section. Procedure Findings Check Surgery Details section. Procedure Specimens Taken Check Surgery Details section.
--- OUTSIDE RECORDS SUMMARY | 2023-04-19 06:56 | XMS_ITS | Clinical Summary ---
Author Name Unknown Organization [facility] Address [place], [place] [address] Care Team Providers Care Guest Service Supervisor Name Role Phone Pcp, No Primary Care Provider Unavailabl e Social History Tobacco Use Types Packs/Day Years Used Date Smoking Tobacco: Never Assessed Sex and Gender Information Value Date Recorded Sex Assigned at Not on file Gender Identity Not on file Sexual Orientation Not on file Plan of Treatment Health Maintenance Due Date Last Done Comments COVID-19 vaccine series (#1) 1990 Tdap 2001 Depression screening for age 12+ 2002 HIV for age 15-65 2005 BMI (ht and wt on same day) for age 18+ 2008 Hepatitis C screening for ag e 18-79 2008 Tetanus booster 2010 Influenza for age 9-49 11/26/2022 Pap test for age 21-65 01/26/2025 2, 01/26/2022 Pneumococcal series for age 6-64 Aged Out No longer eligible b ased on patient's age to complete this topic Care Teams Guest Service Supervisor Relationship Specialty Start Date End Date Pcp, No . PCP - General 10/18/13
--- NOTE | 2023-04-19 08:23 | W.ANESCHARGE ---
Anesthesia Charges Start Date/Time Anesthesia Start Date: 04/19/23 Anesthesia Start Time: 07:57 Stop Date/Time Anesthesia Stop Date: 04/19/23 Anesthesia Stop Time: 08:23
--- NOTE | 2023-04-19 09:41 | W.ANESCHARGE ---
Anesthesia Charges Start Date/Time Anesthesia Start Date: 04/19/23 Anesthesia Start Time: 07:57 Stop Date/Time Anesthesia Stop Date: 04/19/23 Anesthesia Stop Time: 08:23
== END 2023-04-19 06:54 | disposition home or self-care (01) ==
LOC: OP CLINIC 06:53
PROVIDERS: PCP Nurse Practitioner Family; Visit Provider Internal Medicine
DX: K92.1 Melena (principal)
CPT/HCPCS: 00811; 00812; 45378; J2704